=== PATIENT | female | born 1995 | race Caucasian/White ===

== ENCOUNTER 2020-02-14 08:45 | Outpatient (RCR) | payer BC, SELFPAY ==
--- NOTE | 2020-02-07 14:34 | P.PNPSP_ITS ---
Subjective Subjective Date of Service: 02/07/20 Reason For Visit: F33.2 Interim History: Steph reports she is sleeping better on Remeron, however, wants to discuss a return to low dose hydroxyzine for anxiety mgt as a prn. States Sertraline is tolerated, but feels an increase is warranted as well. Reports some vague SI last night, no plan, no intent, but when it was first initiated she felt a calm mind. Sx have increased since 01/29 and she is aware that medicine will not address all things but asks we consider modest titration. Medication Compliance: Yes Side effects from medications: No Attending Groups: Yes Mental Status Exam Mental Status Exam Patient Appearance: Appropriate Patient Orientation: Person, Place, Time and Situation Level of Consciousness: Awake and Appropriate Patient Behavior: Appropriate Mood Description: Calm Affect Description: Calm and Flat Patient Cognition Impaired: No Ability to Follow Directions: Excellent Memory Description: Intact Hallucinations: None Delusions: Not Present Thought Process: Intact Thought Content: positive for Intact Depressive Symptoms: Loss of Int. in Activity, Unhappiness, Low Self Esteem, Loss of Energy and Difficulty Concentrating Judgement: Good Assessment & Plan Certification I certify that partial hospital treatment is medically necessary due to the symptoms and problems resulting from the patient's mental illness and the failure to treat the patient at the partial hospital level of care would likely result in the patient requiring inpatient psychiatric care which could not be prevented at a less intensive level of care. Greater than 50% of the session was spent on counseling and/or coordination of care Discharge Plan Discharge Attending provider: Korey Burkett Additional Instructions: Increase Sertraline to 75 mg daily Hydroxyzine 25 mg daily prn (Benadral she reports is discontinued). Pharmacy is [place], [place] Medications: New sertraline 50 mg tablet 50 mg PO DAILY MDD 75 mg daily Qty: 14 RF: 0 Continued hydroxyzine pamoate 25 mg capsule 25 mg PO BID MDD 50 mg PRN (Reason: other-anxiety) Qty: 14 RF: 0 Discontinued sertraline 50 mg tablet 50 mg PO DAILY RF: 0 No Action oxybutynin chloride 5 mg tablet extended release 24hr 10 mg PO DAILY RF: 0 dextroamphetamine-amphetamine 5 mg capsule,extended release 24hr 5 mg PO DAILY RF: 0 bupropion HCl 300 mg tablet extended release 24 hr 300 mg PO DAILY RF: 0 bupropion HCl 150 mg tablet extended release 24 hr 150 mg PO DAILY RF: 0 cholecalciferol (vitamin D3) [Vitamin D3] 50 mcg (2,000 unit) capsule 50 mcg PO DAILY RF: 0 famotidine 20 mg tablet 20 mg PO DAILY PRN (Reason: Acid Reflux) RF: 0 melatonin 20 mg 20 mg PO BEDTIME RF: 0 [place] RF: 0 loratadine RF: 0 multivitamin 1 tab PO DAILY RF: 0 zinc RF: 0
--- NOTE | 2020-02-13 11:23 | HO.PHPPROGNO ---
Subjective Subjective Date of Service: 02/13/20 Reason For Visit: F33.2 Interim History: Steph reports she would like to discuss Sertraline. She does not feel it is a good fit for her and thinks it may be making symptoms more intense. Each time she is titrated she feels clear for a few days, calm and on track, then she develops anxiety and an increase in depressive sx. She also feels bladder urgency. Discussed this being a side effect vs. breakthrough sx. Also discussed Mirtazapine. She feels it helps sleep, however with her history of binge eating which has been in remission for ~1 year she finds she is beginning to experience this symptom again. As a result she finds these are not the best fit for her and asks to discuss options. Medication Compliance: Yes Side effects from medications: Yes (as noted above) Attending Groups: Yes Mental Status Exam Mental Status Exam Patient Orientation: Person, Place, Time and Situation Level of Consciousness: Awake, Appropriate and Alert Patient Behavior: Appropriate and Anxious Mood Description: Appropriate and Anxious Affect Description: Anxious Patient Cognition Impaired: No Ability to Follow Directions: Excellent Speech Pattern: Clear and Appropriate Memory Description: Intact Hallucinations: None Delusions: Not Present Thought Process: Intact Thought Content: positive for Intact Depressive Symptoms: Increased Anxiety, Changes in Appetite, Hopelessness, Unhappiness, Increased Fatigue, Loss of Energy and Difficulty Concentrating Judgement: Good Assessment & Plan Patient educated on: diagnosis, medication risk/benefits and therapeutic strategies Informed Consent: understands and further education needed Reason for contiued partial hosp. stay Substantial Risk for: harm to self, inability to function and rapid decompensation Certification I certify that partial hospital treatment is medically necessary due to the symptoms and problems resulting from the patient's mental illness and the failure to treat the patient at the partial hospital level of care would likely result in the patient requiring inpatient psychiatric care which could not be prevented at a less intensive level of care. Greater than 50% of the session was spent on counseling and/or coordination of care Discharge Plan Discharge Attending provider: Korey Burkett Additional Instructions: Sertraline taper... 50 mg daily for 3 days, 25 mg daily for three days, then discontinue Discontinue Mirtazapine Trazodone 50 mg hs Review on 02/18/20 for further interventions. Pharmacy is [place], [place] Medications: New sertraline 50 mg tablet 50 mg PO DAILY MDD 75 mg daily Qty: 14 RF: 0 trazodone 50 mg tablet 50 mg PO BEDTIME Qty: 14 RF: 0 Continued hydroxyzine pamoate 25 mg capsule 25 mg PO BID MDD 50 mg PRN (Reason: other-anxiety) Qty: 14 RF: 0 Discontinued sertraline 50 mg tablet 50 mg PO DAILY RF: 0 No Action oxybutynin chloride 5 mg tablet extended release 24hr 10 mg PO DAILY RF: 0 dextroamphetamine-amphetamine 5 mg capsule,extended release 24hr 5 mg PO DAILY RF: 0 bupropion HCl 300 mg tablet extended release 24 hr 300 mg PO DAILY RF: 0 bupropion HCl 150 mg tablet extended release 24 hr 150 mg PO DAILY RF: 0 cholecalciferol (vitamin D3) [Vitamin D3] 50 mcg (2,000 unit) capsule 50 mcg PO DAILY RF: 0 famotidine 20 mg tablet 20 mg PO DAILY PRN (Reason: Acid Reflux) RF: 0 melatonin 20 mg 20 mg PO BEDTIME RF: 0 [place] RF: 0 loratadine RF: 0 multivitamin 1 tab PO DAILY RF: 0 zinc RF: 0
--- NOTE | 2020-02-18 15:04 | PC.NURSE ---
I called and left a message for pt asking to go over discharge material. Another staff member (Tiffany) also called and left a message. Pt did not show today for treatment on her scheduled last day.
--- NOTE | 2020-02-18 16:48 | HO.PHPPROGNO ---
Subjective Subjective Date of Service: 02/18/20 Reason For Visit: F33.2 Interim History: Steph did not attend PHP today. She reports the Trazodone was not helpful over the weekend. Describes extreme anxiety, an increase in OCD behaviors, poor sleep with daytime tiredness and lability. She prefers the Mirtazapine and the overall sense of well-being it helps her to achieve and would like to re-initiate that at 3.75-7.5 mg hs. Reflects that mirtazapine did a better job quieting my mind with positive residual effects . Prescriber appt scheduled for 02/26/20. Offered bridge services for the 8 days pending. Pt to call as needed. Review of regime-discussed current symptoms. 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 Discussion of burn out and emotional energy needed in caring for others. Medication Compliance: Yes Side effects from medications: Yes (Trazodone was not helpful-anxiety,insomnia, ocd sx increase, tired, labile) Attending Groups: No (Pt did not attend her last day of PHP.) Review of Systems Review of Systems Yes all other systems are reviewed and are negative, unobtainable due to endotracheal tube, Unobtainable due to mental condition, Unobtainable due to mental status and Other Psychiatric: Reports anxiety, Reports depression, Reports irritability and Reports mood swings Mental Status Exam Mental Status Exam Patient Orientation: Person, Place, Time and Situation Level of Consciousness: Awake and Alert Patient Behavior: Appropriate Mood Description: Anxious Affect Description: Anxious Patient Cognition Impaired: No Ability to Follow Directions: Excellent Speech Pattern: Clear and Appropriate Memory Description: Intact Hallucinations: None Thought Process: Intact and Goal Oriented Thought Content: positive for Intact and positive for Goal Oriented Depressive Symptoms: Increased Anxiety, Insomnia and Difficulty Sleeping Judgement: Good Assessment & Plan Patient educated on: medication risk/benefits and therapeutic strategies Informed Consent: understands and further education needed Reason for contiued partial hosp. stay Substantial Risk for: inability to function Certification I certify that partial hospital treatment is medically necessary due to the symptoms and problems resulting from the patient's mental illness and the failure to treat the patient at the partial hospital level of care would likely result in the patient requiring inpatient psychiatric care which could not be prevented at a less intensive level of care. Greater than 50% of the session was spent on counseling and/or coordination of care Discharge Plan Discharge Attending provider: Korey Burkett Additional Instructions: Sertraline taper... 50 mg daily for 3 days, 25 mg daily for three days, then discontinue. Will begin 25 mg daily on 02/19/20. Discontinue Trazodone Return to Mirtazapine 7.5 mg 1/2-1 tab at HS. Pt requests we send a prescription to [place], [place] Medications: New mirtazapine 7.5 mg tablet 7.5 mg PO BEDTIME Qty: 10 RF: 0 Continued hydroxyzine pamoate 25 mg capsule 25 mg PO BID MDD 50 mg PRN (Reason: other-anxiety) Qty: 14 RF: 0 Discontinued sertraline 50 mg tablet 50 mg PO DAILY RF: 0 No Action oxybutynin chloride 5 mg tablet extended release 24hr 10 mg PO DAILY RF: 0 dextroamphetamine-amphetamine 5 mg capsule,extended release 24hr 5 mg PO DAILY RF: 0 bupropion HCl 300 mg tablet extended release 24 hr 300 mg PO DAILY RF: 0 bupropion HCl 150 mg tablet extended release 24 hr 150 mg PO DAILY RF: 0 cholecalciferol (vitamin D3) [Vitamin D3] 50 mcg (2,000 unit) capsule 50 mcg PO DAILY RF: 0 famotidine 20 mg tablet 20 mg PO DAILY PRN (Reason: Acid Reflux) RF: 0 melatonin 20 mg 20 mg PO BEDTIME RF: 0 [place] RF: 0 loratadine RF: 0 multivitamin 1 tab PO DAILY RF: 0 zinc RF: 0 sertraline 25 mg 25 mg PO DAILY RF: 0 Referrals: Duran Weiss MD [Physician] - (02/26/2020 at 2:15 pm)
== END 2020-02-18 23:55 | disposition home or self-care (01) ==
LOC: HO.PHPA 08:45
PROVIDERS: Visit Provider Psychiatry & Neurology Psychiatry
DX: F33.2 Major depressive disorder, recurrent severe without psychotic features (principal); F90.9 Attention-deficit hyperactivity disorder, unspecified type
CPT/HCPCS: 90853; 99213

== ENCOUNTER 2020-05-07 09:00 | Outpatient (RCR) | payer BC, SELFPAY ==
[2020-04-24 12:33] VITALS: BMI 25.8
--- NOTE | 2020-04-24 12:50 | PC.ADMIT ---
Patient is a 24 year old female who self referred to [facility] on advice of her outpatient [facility] providers d/t an increase in depression with passive SI and increase in anxiety. Patient reports family issues as a source of stress. Stated she is here to, continue to work on impulsivity, anger control, and anxiety relief . She stated, depression worthy I dipped . Denied SI at present. Gave verbal permission to email her a copy of her safety plan. Patient has the crisis number if needed. Patient is also aware that she can talk to staff while in the program if she feels unsafe. She is alert and oriented x4. Calm and cooperative. Help seeking.
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
--- NOTE | 2020-04-28 09:22 | PC.NURSE ---
Tw called and left message for pt as she did not attend morning community meeting. Pt was asked to return the call to ensure safety as well as return to program tomorrow 04/29. Pt returned the call stating that she slept through her alarm. Pt was informed that she will be expected tomorrow for program. Pt agreed.
--- NOTE | 2020-04-29 14:56 | HO.PHPPROGNO ---
Subjective Subjective Date of Service: 04/29/20 Reason For Visit: depression Interim History: Patient she reports she has been dealing with some type of flu like illness. Reporting her sleep has improved as she is now taking gabapentin 100mg QHS, Xanax 0.25mg (2 tabs), and melatonin. Her outpatient provider started the xanax earlier this month and she is finding it helpful. Reporting some anxiety related to upcoming Holiday's and how interactions with family will go. Medication Compliance: Yes Side effects from medications: No Attending Groups: Yes Review of Systems Constitutional: Reports as per [facility] Mental Status Exam Mental Status Exam Patient Appearance: Well Grooomed Level of Consciousness: Awake, Appropriate and Alert Patient Behavior: Appropriate Mood Description: Happy and Appropriate Affect Description: Happy and Anxious Ability to Follow Directions: Excellent Speech Pattern: Clear Hallucinations: None Delusions: Not Present Thought Content: positive for Circumstantial Depressive Symptoms: Increased Anxiety, Feelings of Guilt and Unhappiness Judgement: Good Diagnostics Vital Signs (24Hr): Body Mass Index 25.8 Assessment & Plan Assessment & Plan (1) Major depression, recurrent: Status: Acute Code(s): F33.9 - Major depressive disorder, recurrent, unspecified Assessment and Plan: no changes followup PRN Certification I certify that partial hospital treatment is medically necessary due to the symptoms and problems resulting from the patient's mental illness and the failure to treat the patient at the partial hospital level of care would likely result in the patient requiring inpatient psychiatric care which could not be prevented at a less intensive level of care. Greater than 50% of the session was spent on counseling and/or coordination of care Discharge Plan Discharge Attending provider: Korey Burkett Medications: No Action alprazolam [Xanax] 0.25 mg Tablet 0.25 mg PO DAILY RF: 0 sertraline 25 mg Tablet 37.5 mg PO DAILY RF: 0 hydroxyzine HCl 25 mg Tablet 25 mg PO DAILY PRN (Reason: Anxiety) RF: 0 gabapentin 100 mg Tablet 100 mg PO BEDTIME RF: 0 oxybutynin chloride 5 mg tablet extended release 24hr 10 mg PO BEDTIME RF: 0 bupropion HCl 300 mg tablet extended release 24 hr 300 mg PO DAILY RF: 0 bupropion HCl 150 mg tablet extended release 24 hr 150 mg PO DAILY RF: 0 cholecalciferol (vitamin D3) [Vitamin D3] 50 mcg (2,000 unit) capsule 50 mcg PO DAILY RF: 0 Telehealth Telehealth Location of provider rendering services: practice address Location of patient: address on file Patient Identification confirmed using: Name, : Yes Telehealth method: video Patient verbally consented to treatment: Yes Patient verbally consented to billing insurance company: Yes Time spent with patient (mins): 15
--- NOTE | 2020-05-04 16:38 | HO.PHPPROGNO ---
Subjective Subjective Date of Service: 05/04/20 Reason For Visit: depression Interim History: Patient reporting she feels her sertraline may be causing issues for her. She has been craving meat (she is vegan) and noted that she is bloated and feels that the sertraline may be the reason. Provided supportive listening then encouraged patient to log when she notices these fluctuations to better track if these become chronic or if they align with her menstrual cycle. Voiced hesitation to make additional changes to regimen based on reported patient concerns--patient agreeable. Medication Compliance: Yes Side effects from medications: Yes (as reported by patient in HPI) Attending Groups: Yes Review of Systems Constitutional: Reports as per HPI Mental Status Exam Mental Status Exam Patient Appearance: Well Grooomed and Appropriate Level of Consciousness: Awake, Appropriate and Alert Patient Behavior: Appropriate and Talkative Mood Description: Cheerful and Anxious Affect Description: Cheerful Ability to Follow Directions: Excellent Speech Pattern: Clear and Appropriate Hallucinations: None Thought Process: Rumination Thought Content: positive for Circumstantial Depressive Symptoms: Increased Anxiety Judgement: Fair Diagnostics Vital Signs (24Hr): Body Mass Index 25.8 Assessment & Plan Assessment & Plan (1) Major depression, recurrent: Status: Acute Code(s): F33.9 - Major depressive disorder, recurrent, unspecified Assessment and Plan: no changes to regimen at this time Certification I certify that partial hospital treatment is medically necessary due to the symptoms and problems resulting from the patient's mental illness and the failure to treat the patient at the partial hospital level of care would likely result in the patient requiring inpatient psychiatric care which could not be prevented at a less intensive level of care. Greater than 50% of the session was spent on counseling and/or coordination of care Discharge Plan Discharge Attending provider: Korey Burkett Medications: New alprazolam [Xanax] 0.25 mg tablet 0.25 mg PO BEDTIME PRN (Reason: sleep) Qty: 7 RF: 0 gabapentin 100 mg capsule 100 mg PO BEDTIME Qty: 7 RF: 0 alprazolam 0.25 mg tablet 0.25 mg PO BEDTIME PRN (Reason: sleep) Qty: 6 RF: 0 Discontinued alprazolam [Xanax] 0.25 mg Tablet 0.25 mg PO DAILY RF: 0 No Action sertraline 25 mg Tablet 37.5 mg PO DAILY RF: 0 hydroxyzine HCl 25 mg Tablet 25 mg PO DAILY PRN (Reason: Anxiety) RF: 0 gabapentin 100 mg Tablet 100 mg PO BEDTIME RF: 0 oxybutynin chloride 5 mg tablet extended release 24hr 10 mg PO BEDTIME RF: 0 bupropion HCl 300 mg tablet extended release 24 hr 300 mg PO DAILY RF: 0 bupropion HCl 150 mg tablet extended release 24 hr 150 mg PO DAILY RF: 0 cholecalciferol (vitamin D3) [Vitamin D3] 50 mcg (2,000 unit) capsule 50 mcg PO DAILY RF: 0 Telehealth Telehealth Location of provider rendering services: practice address Location of patient: address on file Patient Identification confirmed using: Name, : Yes Telehealth method: video Patient verbally consented to treatment: Yes Patient verbally consented to billing insurance company: Yes Time spent with patient (mins): 17
--- NOTE | 2020-05-12 08:02 | PC.NURSE ---
note entered late....05/07/2020- LM for Arian Quintana, Pt's therapist, informing him of discharge and status.
== END 2020-05-07 23:55 | disposition home or self-care (01) ==
LOC: HO.PHPA 09:00
PROVIDERS: Visit Provider Psychiatry & Neurology Psychiatry
DX: F33.2 Major depressive disorder, recurrent severe without psychotic features (principal); F90.9 Attention-deficit hyperactivity disorder, unspecified type
CPT/HCPCS: 90791; 90853; 99213

== ENCOUNTER 2020-11-19 11:52 | Outpatient (RCR) | payer OTHER, SELFPAY ==
--- NOTE | 2020-11-20 15:23 | PC.NURSE ---
Patient was a no show for her first day of PHP. Pt reported that she did not sleep and could not start. Pt will be contacted for reassessment.
== END 2020-11-23 07:22 | disposition home or self-care (01) ==
LOC: HO.PHPA 11:52
PROVIDERS: Visit Provider Psychiatry & Neurology Psychiatry
DX: F33.2 Major depressive disorder, recurrent severe without psychotic features (principal); F41.9 Anxiety disorder, unspecified; F42.9 Obsessive-compulsive disorder, unspecified
CPT/HCPCS: 90791

== ENCOUNTER → 2024-01-01 12:15 | Outpatient (BNV) | payer OTHER, SELFPAY | PROVIDERS: Visit Provider Psychiatry & Neurology Psychiatry | DX: F33.9 Major depressive disorder, recurrent, unspecified (principal); F42.8 Other obsessive-compulsive disorder | CPT/HCPCS: 90792; 99213; 99214; 99499 ==

== ENCOUNTER 2024-01-03 08:24 | Outpatient (REF) | payer OTHER, SELFPAY ==
[2024-01-03 09:04] LABS: MANUAL DIFF FLAG NO
[2024-01-03 10:41] LABS: Basophils Percent Auto 0.3 % (0-2); Eosinophils Absolute Auto 0.1 X10*3/uL (0.0-0.4); Eosinophils Percent Auto 1.9 % (0-4); Hematocrit 34.8 % (37.0-47.0); Hemoglobin 11.5 g/dl (12.0-16.0); Imm Gran Abs Auto 0.02 X10*3/uL (0.00-0.03); Imm Gran Pct Auto 0.3 % (0.0-0.4); Lymphocytes Absolute Auto 1.6 X10*3/uL (1.2-4.9); Lymphocytes Percent Auto 24.5 % (20-40); Mean Corpuscular Hemoglobin 31.7 pg (27.0-33.0); Mean Corpuscular Volume 95.9 fL (80.0-98.0); Mean Platelet Volume 10.1 fL (9.4-12.3); Monocytes Absolute Auto 0.5 X10*3/uL (0.1-1.2); Monocytes Percent Auto 7.2 % (2-11); Neutrophils Absolute Auto 4.2 x10*3/uL (2.0-8.3); Neutrophils Percent Auto 65.8 % (45-73); Platelet Count 284 X10*3/uL (160-400); Red Blood Count 3.63 X10*6/uL (4.20-5.50); Red Cell Distribution Width 12.9 % (11.0-16.0); White Blood Count 6.4 X10*3/uL (4.8-10.8)
[2024-01-03 10:45] LABS: Prothrombin Time 11.9 SEC (11.1-13.3)
[2024-01-03 10:56] LABS: Appearance Urine Cloudy; Color Urine Yellow; Glucose Urine UA Negative (Negative); Leukocyte Esterase Urine Moderate (2+) (Negative); Nitrite Urine Negative (Negative); Specific Gravity - Urine 1.025 (1.005-1.025); UMIC TRIGGER UA YES; Urine Blood Small (1+) (Negative); Urine Ketones Trace mg/dL (Negative); Urine Protein 30 (1+) mg/dL (Neg-Trace)
[2024-01-03 11:00] LABS: UPreg QC Valid YES; Urine Pregnancy NEGATIVE (NEGATIVE)
[2024-01-03 11:10] LABS: Estimated Average Glucose 85 mg/dL; Hemoglobin A1c % 4.6 % (<6.0)
[2024-01-03 11:15] LABS: Acetaminophen LAB < 3 mcg/mL (<30)
[2024-01-03 11:16] LABS: Bacteria Urine 1+ (None Seen); Hyaline Casts Urine 0-2 /LPF (0-2); WBC Urine 21-50 /HPF (0-5)
[2024-01-03 11:42] LABS: Alanine Aminotransferase 12 U/L (0-31); Albumin Level 4.5 g/dL (3.5-5.0); Alkaline Phosphatase 48 U/L (39-117); Anion Gap 13 (12-20); Aspartate Amino Transferase 14 U/L (5-31); Bilirubin Total 0.3 mg/dL (0.0-1.0); Blood Urea Nitrogen 10 mg/dL (9-16); Calcium 9.9 mg/dL (8.4-10.2); Carbon Dioxide 27 mmol/L (22-29); Chloride 108 mmol/L (96-108); Cholesterol 152 mg/dL (<200); Estimated Glomerular Filt Rate > 60; Gamma Glutamyl Transpeptidase 20 U/L (7-33); Glucose Fasting 87 mg/dL (60-99); HDL Cholesterol 49 mg/dL (>40); Iron 49 mcg/dL (30-160); LDL Cholesterol Calculated 83 mg/dL (<100); Lactate Dehydrogenase 163 U/L (122-220); Lipase 19 U/L (8-78); Percent Iron Saturation 22 % (15-50); Potassium 3.5 mmol/L (3.3-5.1); Sodium 144 mmol/L (135-145); Total Iron Binding Capacity 220 mcg/dL (228-428); Triglycerides 102 mg/dL (<150); Unsaturated Iron Binding 171 ug/dL
[2024-01-03 11:46] LABS: Folate 5.3 ng/mL (> or = 4.0); Vitamin B12 771 pg/mL (200-900)
[2024-01-03 12:00] LABS: Ferritin 62 ng/mL (10-122); Free T4 (Free Thyroxine) 0.82 ng/dL (0.71-1.85); Thyroid Stimulating Hormone 0.66 uIU/mL (0.32-4.0)
[2024-01-11 17:43] LABS: Vitamin K1 719 pg/mL (130-1500)
== END 2024-01-03 08:25 | disposition home or self-care (01) ==
LOC: HO.LAB 08:24
PROVIDERS: PCP Internal Medicine; Visit Provider Psychiatry & Neurology Psychiatry
DX: F33.2 Major depressive disorder, recurrent severe without psychotic features (principal); F41.1 Generalized anxiety disorder; F42.9 Obsessive-compulsive disorder, unspecified
CPT/HCPCS: 36415; 80053; 80061; 80143; 81001; 81025; 82306; 82607; 82728; 82746; 82977; 83036; 83540; 83615; 83690; 84439; 84443; 84597; 85025; 85610; 87086; 87147

== ENCOUNTER 2024-01-16 12:15 | Outpatient (RCR) | payer OTHER, SELFPAY ==
[2024-01-01 11:46] VITALS: BP 111/84; PULSE 92; TEMP 37.1
[2024-01-01 11:49] VITALS: BMI 23.3
--- NOTE | 2024-01-01 15:03 | PC.ADMIT ---
Patient is a 28 year old female who self referred to PHP d/t increased sxs of depression, anxiety, and OCD. She reports triggers include her father who is not doing well health worthy as he needs another heart replacement surgery and has been declined. She is also struggling in her relationship with her boyfriend of 8 months. Patient lives with parents and partner. Spends 1/2 time with each. 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 Training currently however is looking for a different job something other than remote as she does not like working remote. Patient is alert and oriented x4. Calm and cooperative. Thoughts are clear and logical. She presented with depressed mood and anxious affect. She stated her OCD sxs have increased and she gets fixated on something it is hard for her to let it go as a result. She denied SI. She was given a copy of her safety plan if needed. Medications reconciled with patient and patient's pharmacy. She reports taking medications as prescribed with the exception of Wellbutrin 150 mg tab as she does not take this all the time as she feels it is too much taking it with the [address] Oviedo is aware. Patient also not taking OTC Tylenol as prescribed. See below.
--- NOTE | 2024-01-01 15:04 | PC.NURSE ---
Patient has a new PCP appointment with Dr Auguste on February 08, 2024 at 2pm. [address] [place] [address]. Office number [phone].
--- NOTE | 2024-01-01 22:16 | P.HPPSP_ITS ---
HPI Date of Service: 01/01/24 Chief Complaint: MDD Sources of Information: patient interviewed, chart reviewed and crisis/core team assessment reviewed HPI Narrative: Patient is a single 28 year old female with history of depression, anxiety, OCD, binge eating who was self referred to [facility]. I've been in decline for over a month now due to family and relationship stressors. She reports that she was last doing well in November, and that her mood and mental health was relatively well-controlled. She reports her father has been experiencing medical complications and congestive heart failure. He received a heart transplant years ago, but it is showing signs of failing. The hospital said they wont be giving him a new one . She also has been dealing with a lot of emotionally- provoking problems with her partner, she says they have a very healthy relationship, but that they are in a rough patch in recent months which has been destabilizing. She enjoys her job but says she has needed to take time off due to decline in functioning. She reports OCD sx are partially treated. She was started on fluvoxamine 7 months ago and was initially helpful, but has been experiencing flare-ups more recently. Current medication regime includes Wellbutrin XL 450 mg (which she has been on since 2018), fluvoxamine 100 mg/d added in 04/2023 and gabapentin 100 mg qhs. She reports having difficulty sleeping, shares that she has been especially frustrated with her provider who insists that she remain on Wellbutrin XL 450 mg which he reportedly says that's my base however patient is not certain what it is helping with. The dose has persisted for years, and in fact she has had sleep issues for years which she reportedly manages with OTC Tylenol PM. She reports taking 8 tablets every night. She denies anyone has suggested she discontinue this or voiced concerns about exceeding the daily max AC dose. She is also noted to have lost in excess of 60 lbs in the past Past Psychiatric History: IP x 1 in 01/2020 to [facility] for depression, SI Previous virtual [facility] admissions Denies detox/rehab admissions Denies hx of suicidal thoughts w plan which lead to hospitalization, no SA or SIBs Denies hx of aggressive behaviors (per initial assessment, reports of aggressive interactions with father, BF) Hx disorganzied eating behaviors, namely binge eating, currently being managed Therapist: Bonilla Kwan Psych provider: Duran Weiss Previous trials: Zoloft (AE:got worse, possibly manic), Buspar (ineffective), trazodone, Xanax, melatonin, Benadryl, hydroxyzine CURRENT MEDICATIONS Wellbutrin XL 450 mg qam fluvoxamine 50 mg BID gabapentin 100 mg qhs hydroxyzine 50 mg qd prn semaglutide 0.25 mg subcut qweekly otc Tylenol PM, reports taking ~8 tablets (3500 mg?) every night x yrs [facility] Medical History (Updated 01/02/24 @ 13:43 by Nely Oviedo MD) Allergic conjunctivitis, bilateral Anxiety Narrative: Weight loss - 45 lbs intentional (on semaglutide) additional 10 lbs past month unintentional Reports regularly taking high doses of Tylenol PM that supercede max dose Family History: Mother - depression, anxiety, OCD Father - depression, anxiety, ADHD, anger issues Social History: Unmarried, no children. In current relationship Currently employed Graduated from [employer] majoring in theater Substance History: Cannabis use - occasional edibles, smoking, vaping THC. Last use was 09/2023 Alcohol use - socially, in moderation, limited to weekend. Remote history of heavier use in college. some black-outs, denies any binges or concerning behaviors Sporadic recreational drug use for <12 months from 2020- (cocaine, LSD, poppers) denies any heavy use or accidental overdoses Trauma History: endorses Diagnostics Vital Signs (24Hr): Vital Signs - 24 hr 01/01/24 11:46 Temperature 98.8 F Pulse Rate 92 Blood Pressure 111/84 BMI result Body Mass Index 23.3 Meds/Allergies Meds Home Medications ?Medication ?Instructions ?Recorded ?Confirmed ?Type bupropion HCl 150 mg 24 hr tablet, 150 mg PO DAILY 02/07/20 01/01/24 History extended release bupropion HCl 300 mg 24 hr tablet, 300 mg PO DAILY 02/07/20 01/01/24 History extended release hydroxyzine HCl 25 mg tablet 25 mg PO BID PRN Anxiety 04/24/20 01/01/24 History fluvoxamine 50 mg tablet 50 mg PO BID 01/01/24 01/01/24 History gabapentin 100 mg capsule 100 mg PO DAILY 01/01/24 01/01/24 History semaglutide (weight loss) 0.25 0.25 mg subcut QWEEK 01/01/24 01/01/24 History mg/0.5 mL subcutaneous pen injector Allergies Allergies Allergy/AdvReac Type Severity Reaction Status Date / Time coconut [COCONUT] Allergy Unknown Shortness Verified 04/24/20 12:29 of Breath soy [SOY] Allergy Unknown Shortness Verified 04/24/20 12:29 of Breath Mental Status Exam Mental Status Exam Narrative: Alert, oriented, in no acute distress. Calm, cooperative, engaged. No psychomotor agitation or neurovegetative retardation. Eye contact maintained. Mood anxious, affect variable, mood congruent. Speech normal. Thought process linear, coherent. Thought content related to stressors, denies any hopelessness or SI. Denies any aggressive ideation or HI. No paranoia or delusional content elicited. No evidence of psychosis. Insight and judgment - fair but adequate. Assessment & Plan Assessment & Plan (1) Major depression, recurrent: Status: Acute Code(s): F33.9 - Major depressive disorder, recurrent, unspecified (2) ADHD: Status: Acute Code(s): F90.9 - Attention-deficit hyperactivity disorder, unspecified type (3) Other obsessive-compulsive disorder: Status: Acute Code(s): F42.8 - Other obsessive-compulsive disorder (4) Other mixed anxiety disorders: Status: Acute Code(s): F41.3 - Other mixed anxiety disorders (5) Cannabis use disorder, mild, abuse: Status: Acute Code(s): F12.10 - Cannabis abuse, uncomplicated Plan Admit to [facility] VS reviewed: abrefile, BP ? bpm decrease Wellbutrin XL to 300 mg qam start Abilify 2 mg qhs (start 1/2 tablet for 1-2 nights, then whole tablet) increase gabapentin to 300 mg qhs take melatonin 5 mg qhs start diphenhydramine 25 mg qhs PRN sleep may take lorazepam 0.5 mg at night PRN breakthrough insomnia while adjusting medications #10 continue fluvoxamine 50 mg BID continue other regular medications?- semaglutide 0.25 mg subcut weekly Routine lab work ordered - routine labs including LFTs EKG, routine for baseline QTc for medication considerations UDS as indicated [facility]Pat reviewed Continue to monitor as per protocol Patient educated on: diagnosis, medication risk/benefits and substance abuse Informed Consent: understands Certification I certify that partial hospital treatment is medically necessary due to the symptoms and problems resulting from the patient's mental illness and the failure to treat the patient at the partial hospital level of care would likely result in the patient requiring inpatient psychiatric care which could not be prevented at a less intensive level of care. Time Spent With Patient Time: Total time managing care of this patient today ____ minutes.
--- NOTE | 2024-01-03 11:33 | P.PNPSP_ITS ---
Subjective Subjective Date of Service: 01/03/24 Reason For Visit: MDD Interim History: As per admission note 01/01/24: 28 year old female with history of depression, anxiety, OCD, binge eating who was self referred to [facility]. I've been in decline for over a month now due to family and relationship stressors. She reports that she was last doing well in November, and that her mood and mental health was relatively well-controlled. She reports her father has been experiencing medical complications and congestive heart failure. He received a heart transplant years ago, but it is showing signs of failing. The hospital said they wont be giving him a new one . She also has been dealing with a lot of emotionally-provoking problems with her partner, she says they have a very healthy relationship, but that they are in a rough patch in recent months which has been destabilizing. She enjoys her job but says she has needed to take time off due to decline in functioning. She reports OCD sx are partially treated. She was started on fluvoxamine 7 months ago and was initially helpful, but has been experiencing flare-ups more recently. Current medication regime includes Wellbutrin XL 450 mg (which she has been on since 2017), fluvoxamine 100 mg/d added in 04/2023 and gabapentin 100 mg qhs. She reports having difficulty sleeping, shares that she has been especially frustrated with her provider who insists that she remain on Wellbutrin XL 450 mg which he reportedly says that's my base however patient is not certain what it is helping with. The dose has persisted for years, and in fact she has had sleep issues for years which she reportedly manages with OTC Tylenol PM. She reports taking 8 tablets every night. She denies anyone has suggested she discontinue this or voiced concerns about exceeding the daily max AC dose. She is also noted to have lost in excess of 60 lbs in the past decrease Wellbutrin XL to 300 mg qam start Abilify 2 mg qhs (start 1/2 tablet for 1-2 nights, then whole tablet) increase gabapentin to 300 mg qhs take melatonin 5 mg qhs start diphenhydramine 25 mg qhs PRN sleep may take lorazepam 0.5 mg at night PRN breakthrough insomnia while adjusting medications #10 continue fluvoxamine 50 mg BID continue other regular medications?- semaglutide 0.25 mg subcut weekly Met with patient today. Overall patient wanted to discuss sleep, allergies and overall med regimen for OCD. Clarified that sleep was a little bit better with gabapentin 300 mg, Ativan 0.5 mg. however was still awake and took Benadryl 25 mg with some benefit. Has also lowered Wellbutrin down to 300 mg as discussed. Tolerating Abilify with 1 dose yesterday. We discussed for sleep can take Benadryl 50 mg along with nighttime medications and if needed an additional 25 mg should she not be sleeping within 60 minutes . Did have some obsessive thoughts such as if soy allergy was not taken off her record, that her partner would break up with her. Again this is clearly obsessive in nature i.e. insight, rational, intrusive etc. . Patient was very clear she is not allergic to so a and she makes this up while she was going through dietary changes. Was very clear she is allergic to coconut. Regarding OCD, did discuss that Abilify can be an effective augmentation agent and also Luvox dose adjustments may also be helpful . Otherwise will be meeting with Dr. Raza tomorrow. Mental Status Exam Mental Status Exam Narrative: Pleasant. Engaged. Casual dress resented. Organized. Some anxiety evident. No SI. No HI. No agitation. No psychosis. Insight and judgment good Diagnostics Vital Signs (24Hr): BMI result Body Mass Index 23.3 Assessment & Plan Assessment & Plan (1) Major depression, recurrent: Status: Acute Code(s): F33.9 - Major depressive disorder, recurrent, unspecified Assessment and Plan: no changes to regimen at this time (2) Other obsessive-compulsive disorder: Status: Acute Code(s): F42.8 - Other obsessive-compulsive disorder Plan We discussed for sleep can take Benadryl 50 mg along with nighttime medications and if needed an additional 25 mg should she not be sleeping within 60 minutes . Regarding OCD, did discuss that Abilify can be an effective augmentation agent and also Luvox dose adjustments may also be helpful . Otherwise will be meeting with Dr. Raza tomorrow. Patient educated on: diagnosis and medication risk/benefits Informed Consent: understands Certification I certify that partial hospital treatment is medically necessary due to the symptoms and problems resulting from the patient's mental illness and the failure to treat the patient at the partial hospital level of care would likely result in the patient requiring inpatient psychiatric care which could not be prevented at a less intensive level of care. Total time managing care of this patient today _30___ minutes. Discharge Plan Discharge Attending provider: Nely Oviedo Additional Instructions: New PCP appointment with Dr Auguste on February 08, 2024 at [address] [place] [address]. Office number [phone]. Medications: New aripiprazole 2 mg tablet 2 mg PO BEDTIME Qty: 14 0RF gabapentin 300 mg capsule 300 mg PO BEDTIME Qty: 14 0RF diphenhydramine HCl 25 mg capsule 25 mg PO BEDTIME PRN (Reason: sleep) Qty: 20 0RF lorazepam 0.5 mg tablet 0.5 mg PO BEDTIME PRN (Reason: breakthrough insomnia) Qty: 10 0RF Continued fluvoxamine 50 mg Tablet 50 mg PO BID No Action hydroxyzine HCl 25 mg Tablet 25 mg PO BID PRN (Reason: Anxiety) bupropion HCl 300 mg tablet extended release 24 hr 300 mg PO DAILY bupropion HCl 150 mg tablet extended release 24 hr 150 mg PO DAILY gabapentin 100 mg capsule 100 mg PO DAILY semaglutide (weight loss) 0.25 mg/0.5 mL Pen Injector 0.25 mg SUBCUT QWEEK Rx Instructions: administer weeks 1 through 4 of therapy Stand Alone Forms: Patient Portal Discharge page Print Language: Brazilian Telehealth Telehealth Telehealth Platform: Other (please specify) ([employer]) Location of provider rendering services: practice address ([place]) Location of patient: other ([facility]) Patient Identification confirmed using: Name, : Yes Telehealth method: video Minutes spent on Phone/Video with Pt.: 15
--- NOTE | 2024-01-04 15:31 | HO.PHP ---
Pt's case has been opened and reviewed in treatment team.
--- NOTE | 2024-01-05 22:44 | HO.PHPPROGNO ---
Subjective Subjective Date of Service: 01/05/24 Reason For Visit: MDD Interim History: Not super great She noticed initially with lowering her dose of Wellbutrin XL from 450 to 300 mg that she was able to sleep better, matt her mind was quieter for the next 2 days. OCD is not constant anymore but it is particularly noticable in the afternoon. She has been taking the ABilfy but only at 1/2 tablet (and did not remember to increase the dose). She will do so tonight and will plan to titrate onwards to 3.5 mg and possibly 5 mg if needed next week, but for now will also plan to bump up fluvoxamine from 50 bid to 75 BID especially since patient denies any sedation or side effects from the fluvoxamine which has also been felt to help with OCD thoughts. Mental Status Exam Mental Status Exam Narrative: Pleasant. Engaged. Casual dress resented. Organized. Some anxiety evident. No SI. No HI. No agitation. No psychosis. Insight and judgment good Diagnostics Vital Signs (24Hr): BMI result Body Mass Index 23.3 Assessment & Plan Assessment & Plan (1) Major depression, recurrent: Status: Acute Code(s): F33.9 - Major depressive disorder, recurrent, unspecified Assessment and Plan: no changes to regimen at this time (2) Other obsessive-compulsive disorder: Status: Acute Code(s): F42.8 - Other obsessive-compulsive disorder Plan continue Wellbutrin XL at 300 mg qam (for now) - will plan to lower to 150 mg as tolerated next week, once Luvox and ABilify are more therapeutic, and perhaps will switch off WB and onto low dose long-acting stimulant for trtmt of ADHD, which patient is better able to control, taking on a PRN basis, and avoid taking during times OCD is more active) increase Abilify to 3.5 mg qhs increase fluvoxamine to 75 mg BID continue gabapentin 300-600 mg qhs continue melatonin, diphenhydramine 25 mg qhs PRN sleep may take lorazepam 0.5 mg at night PRN breakthrough insomnia while adjusting medications #10 continue other regular medications?- semaglutide 0.25 mg subcut , weekly Routine lab work reviewed - LFTs wnl (patient no longer taking Tylenol PM) findings for iron deficiency anemia, low folate - Rx supplement for Fe, folate and vit c EKG, routine and UDS as indicated Continue to monitor Patient educated on: diagnosis, medication risk/benefits and substance abuse Informed Consent: understands Reason for contiued partial hosp. stay Substantial Risk for: rapid decompensation and med/psych decompensation Certification I certify that partial hospital treatment is medically necessary due to the symptoms and problems resulting from the patient's mental illness and the failure to treat the patient at the partial hospital level of care would likely result in the patient requiring inpatient psychiatric care which could not be prevented at a less intensive level of care. Total time managing care of this patient today _30___ minutes. Discharge Plan Discharge Attending provider: Nely Oviedo Additional Instructions: New PCP appointment with Dr Auguste on February 08, 2024 at [address] [place] [address]. Office number [phone]. Medications: New aripiprazole 2 mg tablet 2 mg PO BEDTIME Qty: 14 0RF gabapentin 300 mg capsule 300 mg PO BEDTIME Qty: 14 0RF diphenhydramine HCl 25 mg capsule 25 mg PO BEDTIME PRN (Reason: sleep) Qty: 20 0RF lorazepam 0.5 mg tablet 0.5 mg PO BEDTIME PRN (Reason: breakthrough insomnia) Qty: 10 0RF guanfacine 1 mg tablet extended release 24 hr 1 mg PO DAILY Qty: 30 0RF bupropion HCl [Wellbutrin XL] 150 mg tablet extended release 24 hr 150 mg PO QAM Qty: 30 0RF iron bis glycinat-vit C-FA-B12 28 mg iron-60mg -400 mcg-8 mcg capsule 1 cap PO DAILY 30 Days Qty: 30 1RF Continued fluvoxamine 50 mg Tablet 50 mg PO BID Discontinued hydroxyzine HCl 25 mg Tablet 25 mg PO BID PRN (Reason: Anxiety) bupropion HCl 150 mg tablet extended release 24 hr 150 mg PO DAILY gabapentin 100 mg capsule 100 mg PO DAILY No Action bupropion HCl 300 mg tablet extended release 24 hr 300 mg PO DAILY semaglutide (weight loss) 0.25 mg/0.5 mL Pen Injector 0.25 mg SUBCUT QWEEK Rx Instructions: administer weeks 1 through 4 of therapy Stand Alone Forms: Patient Portal Discharge page Print Language: Frisian
--- NOTE | 2024-01-10 09:51 | HO.PHP ---
[facility] staff member reached out to Steph because she did not show up for the community meeting group. Steph disclosed that she won't be in attendance to program today due to not sleeping well last night. [facility] staff member was receptive and assessed any safety concerns. Steph reported no concerns around SI, plan or intent and stated she is safe. Steph voiced that she will be in attendance to program tomorrow.
--- NOTE | 2024-01-11 13:08 | HO.PHP ---
A referral was placed via fax today 01/11/24 to [facility] for an OP med provider.
--- NOTE | 2024-01-12 12:23 | HO.PHPPROGNO ---
Subjective Subjective Date of Service: 01/12/24 Reason For Visit: MDD, OCD Interim History: OCD at a 10/15, says it was a 04/16 when she started PHP. She says it was considerably better since starting Abilify and even noticed a further reduction in obsessive, intrusive thoughts on 3.5 mg but says she is worried about potentially gaining weight so she went back to 2 mg which still helps, although not as much . Denies any hopelessness or SI. Sleep is better with gabapentin at 600 mg, takes a little while to kick in . Tried 900 mg together which was better although there is delay onset. She is trying to take the Wellbutrin XL earlier, lowering the dose helped with anxiety, but feels a little more lost in her head . Is willing to try switching from entended 24 hr release to the short acting SR 12 hour release. May interfere less with sleep and be more effective for focus/attention. Medication Compliance: Yes Side effects from medications: No Attending Groups: Yes Review of Systems Acute medical concerns: No Mental Status Exam Mental Status Exam Narrative: Pleasant. Engaged. Casual dress resented. Organized. Some anxiety evident. No SI. No HI. No agitation. No psychosis. Insight and judgment good Diagnostics Vital Signs (24Hr): BMI result Body Mass Index 23.3 Assessment & Plan Assessment & Plan (1) Major depression, recurrent: Status: Acute Code(s): F33.9 - Major depressive disorder, recurrent, unspecified Assessment and Plan: no changes to regimen at this time (2) Other obsessive-compulsive disorder: Status: Acute Code(s): F42.8 - Other obsessive-compulsive disorder Plan will check if Vyvanse is covered by insurance in meantime, will switch from Wellbutrin XL 150 mg qam to Wellbutrin SR 100 mg qam start lamotrigine 25 mg qd continue guanfacine ER 1-2 mg qd continue Abilify 3.5 mg qhs (pt lowered back to 2 mg due to weight gain concerns, however is less effective, but agrees to return dose to 3.5 mg while waiting for Lamictal to be therapeutic) cotninue fluvoxamine 75 mg BID hold off taking lorazepam 0.5 mg try using 300 mg of gabapentin earlier in evening continue gabapentin 600 mg qhs continue melatonin prn continue diphenhydramine 25-50 mg qhs PRN sleep continue other regular medications?- semaglutide 0.25 mg subcut , weekly Routine lab work reviewed - LFTs wnl (patient no longer taking Tylenol PM) findings for iron deficiency anemia, low folate - Rx supplement for Fe, folate and vit c EKG, routine and UDS as indicated Continue to monitor Patient educated on: diagnosis and medication risk/benefits Informed Consent: understands Reason for contiued partial hosp. stay Substantial Risk for: med/psych decompensation Certification I certify that partial hospital treatment is medically necessary due to the symptoms and problems resulting from the patient's mental illness and the failure to treat the patient at the partial hospital level of care would likely result in the patient requiring inpatient psychiatric care which could not be prevented at a less intensive level of care. Total time managing care of this patient today __40__ minutes. Discharge Plan Discharge Attending provider: Nely Oviedo Additional Instructions: New PCP appointment with Dr Auguste on February 08, 2024 at [address] [place] [address]. Office number [phone]. Medications: New iron bis glycinat-vit C-FA-B12 28 mg iron-60mg -400 mcg-8 mcg capsule 1 cap PO DAILY 30 Days Qty: 30 1RF lisdexamfetamine 10 mg capsule 10 mg PO QAM Qty: 14 0RF Rx Instructions: Partial Fill upon patient request. lamotrigine 100 mg tablet 100 mg PO DAILY Qty: 14 0RF Continued semaglutide (weight loss) 0.25 mg/0.5 mL Pen Injector 0.25 mg SUBCUT QWEEK Rx Instructions: administer weeks 1 through 4 of therapy fluvoxamine 50 mg Tablet 50 mg PO BID 30 Days Qty: 60 0RF bupropion HCl 100 mg tablet sustained-release 12 hr 100 mg PO QAM Qty: 7 0RF aripiprazole 5 mg tablet 5 mg PO BEDTIME Qty: 7 0RF aripiprazole 2 mg tablet 2 mg PO BEDTIME Qty: 7 0RF Changed diphenhydramine HCl 50 mg capsule 50 - 100 mg PO BEDTIME PRN (Reason: sleep) Qty: 14 0RF gabapentin 300 mg capsule 900 - 1,200 mg PO BEDTIME Qty: 28 0RF guanfacine 1 mg tablet extended release 24 hr 1 mg PO QAM Qty: 7 0RF Discontinued hydroxyzine HCl 25 mg Tablet 25 mg PO BID PRN (Reason: Anxiety) bupropion HCl 300 mg tablet extended release 24 hr 300 mg PO DAILY bupropion HCl 150 mg tablet extended release 24 hr 150 mg PO DAILY gabapentin 100 mg capsule 100 mg PO DAILY Stand Alone Forms: Patient Portal Discharge page Patient Education: Depression (DC), Anxiety (GEN) Print Language: Cook Islander
--- NOTE | 2024-01-16 10:03 | PC.NURSE ---
Dr Oviedo is aware of patient u/a results along with Urine Culture results Organism 1 Strep Agalactiae greater than 100,000.
--- NOTE | 2024-01-16 23:48 | HO.PHPPROGNO ---
Subjective Subjective Date of Service: 01/16/24 Reason For Visit: MDD Interim History: Patient anticipates discharge at the end of the day. I am feeling physically calmer and not sedated. AM able to listen to feedback . Says she feels more present. Reports improvements in OCD especially when she takes Abilify at 3.5 mg. Denies any adverse effects. The effect is so apparent that she felt inclined to start pulling back on Luvox. I dont feel like it works nearly as well and the 75 mg in the AM is too sedating. She is now at Luvox 50 mg BID and feels less tired after AM dose. She shares thoughts of continuing to taper, however agrees to hold off further reductions in dose until sees PO provider. Was unable to fill Vyvanse as it requires a PA. Says she notices the Wellbutrin SR is better tolerated than XL. Less anxiety that XL 300 mg but feels more alert and calmer on SR at 100 mg and does not feel it interfers with sleep. Continues on gbapentin at night, usually needing 900 mg for sleep I also notice if I take 300 of it earlier, I notice my thoughts are a little more focused . Will continue with treatment regime. She denies any SI. No hx of VH, AH, HI. Medication Compliance: Yes Side effects from medications: No Attending Groups: Yes Review of Systems Acute medical concerns: No Mental Status Exam Mental Status Exam Narrative: Pleasant. Engaged. Casually dressed. Organized. Some anxiety evident. Mood anxious, less depressed or labile. No SI. No HI. No agitation. No psychosis. Insight and judgment good Diagnostics Vital Signs (24Hr): BMI result Body Mass Index 23.3 Assessment & Plan Assessment & Plan (1) Major depression, recurrent: Status: Acute Code(s): F33.9 - Major depressive disorder, recurrent, unspecified Assessment and Plan: no changes to regimen at this time (2) Other obsessive-compulsive disorder: Status: Acute Code(s): F42.8 - Other obsessive-compulsive disorder Plan [facility]charge from [facility] continue Wellbutrin SR 100 mg qam continue guanfacine ER 1 mg qd continue lamotrigine 25 mg qd (titrate by 25 mg q 2 weeks) continue Abilify 2-3.5 mg qhs continue fluvoxamine 50 mg BID (pt would like to taper further but agrees to hold off and follow up with OP provider to cont to monitor) continue gabapentin 600-900 mg mg qhs continue diphenhydramine 25-50 mg qhs PRN sleep continue melatonin prn continue other regular medications?- semaglutide 0.25 mg subcut , weekly Vyvanse requiring a PA (so will continue with WB and guanfacine for ADHD) Discontinue lorazepam, Routine lab work reviewed - LFTs wnl (patient no longer taking Tylenol PM) findings for iron deficiency anemia, low folate - Rx supplement for Fe, folate and vit c EKG, routine and UDS as indicated Continue to monitor Patient educated on: diagnosis and medication risk/benefits Informed Consent: understands Reason for contiued partial hosp. stay Substantial Risk for: stable for discharge Certification I certify that partial hospital treatment is medically necessary due to the symptoms and problems resulting from the patient's mental illness and the failure to treat the patient at the partial hospital level of care would likely result in the patient requiring inpatient psychiatric care which could not be prevented at a less intensive level of care. Total time managing care of this patient today __30__ minutes. Discharge Plan Discharge Attending provider: Nely Oviedo Additional Instructions: New PCP appointment with Dr Auguste on February 08, 2024 at [address]pm. [address] [place] [address]. Office number [phone]. Medications: New iron bis glycinat-vit C-FA-B12 28 mg iron-60mg -400 mcg-8 mcg capsule 1 cap PO DAILY 30 Days Qty: 30 1RF lisdexamfetamine 10 mg capsule 10 mg PO QAM Qty: 14 0RF Rx Instructions: Partial Fill upon patient request. lamotrigine 100 mg tablet 100 mg PO DAILY Qty: 14 0RF Continued semaglutide (weight loss) 0.25 mg/0.5 mL Pen Injector 0.25 mg SUBCUT QWEEK Rx Instructions: administer weeks 1 through 4 of therapy fluvoxamine 50 mg Tablet 50 mg PO BID 30 Days Qty: 60 0RF bupropion HCl 100 mg tablet sustained-release 12 hr 100 mg PO QAM Qty: 7 0RF aripiprazole 5 mg tablet 5 mg PO BEDTIME Qty: 7 0RF aripiprazole 2 mg tablet 2 mg PO BEDTIME Qty: 7 0RF Changed diphenhydramine HCl 50 mg capsule 50 - 100 mg PO BEDTIME PRN (Reason: sleep) Qty: 14 0RF gabapentin 300 mg capsule 900 - 1,200 mg PO BEDTIME Qty: 28 0RF guanfacine 1 mg tablet extended release 24 hr 1 mg PO QAM Qty: 7 0RF Discontinued hydroxyzine HCl 25 mg Tablet 25 mg PO BID PRN (Reason: Anxiety) bupropion HCl 300 mg tablet extended release 24 hr 300 mg PO DAILY bupropion HCl 150 mg tablet extended release 24 hr 150 mg PO DAILY gabapentin 100 mg capsule 100 mg PO DAILY Stand Alone Forms: Patient Portal Discharge page Patient Education: Depression (DC), Anxiety (GEN) Print Language: Puerto [place]ican
--- NOTE | 2024-01-17 15:22 | HO.PHP ---
Trombone Slide Assembler called Steph at roughly 9:20 am when pt did not arrive for morning group. Pt answered and informed staff she would not be in today due to some things that came up with her father's health and errands she needed to run for him. Pt stated she would call back in 1 hour to discuss discharge since pt was scheduled to discharge today. Pt did not call back. Trombone Slide Assembler called Steph at roughly 2:00pm and left her a voicemail to please call back before 3:30 to do a phone discharge or if possible, pt can come in tomorrow for her last day and to discharge in person tomorrow. Pt has not yet called back. Pt's discharged will be moved to tomorrow, 01/18/24.
--- NOTE | 2024-01-18 09:41 | HO.PHP ---
9:15 AM: PHP staff member reached out to Steph due to her not showing up to program today. PHP staff member left her a VM and is awaiting a call back. 9:30 AM: PHP staff member reached out to Steph one more time before initiating a phone call to her emergency contact, Umer, who is her father. Steph did not answer again. Another voicemail was left and she was informed that her emergency contact will be reached out to and if she is unable to get a hold of the emergency contact a wellness check will have to be preformed. PHP staff member reached out to Umer, Steph's father, who stated that he believes she is at her boyfriends house. Umer noted that he would reach out to her and have her call the program. Steph contacted the program immediately and apologized because she was on a work call. [facility] staff was receptive and explored if she would be able to come in tomorrow to complete her last day within the program. Steph stated that she would be able to come in half day because she has work at 12:30 PM. [facility] staff was in agreement and informed her she could come in for a half day. [facility] staff member assessed safety, in which she reported no safety concerns or concerns around SI, plan or intent.
--- NOTE | 2024-01-19 10:17 | PM.EVENT ---
Event Note Date of Service: 01/19/24 Event Note: Patient called out of program. She was scheduled for discharge. I spoke with her by phone. She reports she is doing okay and that she needed to work, and attend to setting up her work schedule. She requested to speak with this sports book writer about finalizing her medications and to request refills. I think I like my medication changes. I kind of feel calm and not sedated, and able to listen to feedback. She denies any depressive symptoms, OCD sx still there but a little better . She denies any SI, HI, AH, VH. continue titration of Lamictal toward 100 mg/d, currently at 25 mg qd continue Wellbutrin SR 100 mg qam continue Abilify at 2 mg qd continue Luvox at 50 mg BID (per patient preference, no notable improvement at 75 mg BID. Abilify more effective for OCD sx) continue guanfacine ER daily in evening continue gabapentin 600-900 mg qhs prn sleep continue diphenhydramine 50 mg qhs prn insomnia Refills sent to pharmacy will defer further medication management to outpatient provider Time Spent With Patient Time: Total time managing care of this patient today ____ minutes.
--- NOTE | 2024-02-05 10:08 | P.EN_ITS ---
Event Note Date of Service: 02/05/24 Event Note: Patient is need of refills of her medications. Continues on Lamictal, dose currently at 50 mg qd (continues to titrate toward 100 mg/d). She ran out of Wellbutrin SR 100 mg so started taking what was left of her Wellbutrin XL 150 mg and started noticing that her OCD symptoms got worse . She is eager to get back on the SR 100 mg. She has been taking ABilify 3 mg which she says is better than 2 mg, feels more level, less anxious and OCD was better controlled. Denies any adverse effects form her medications. She has been steady on fluvoxamine 50 mg qam and will consider further reduction in dose in upcoming weeks because she has been on it for a while and had felt it's effectiveness has diminished even prior to [facility] admission. Some sleep disruption, which may be related to longer acting WB, will see if this improves with return to SR formulation. IN the meantime, she can also bump up gabapentin from 900-1200 mg qhs for better sleep. Refills sent to pharmacy. continue Wellbutrin SR 100 mg increase Abilify to 3.5 mg qd continue fluvoxamine 50 mg qd continue lamotrigine 50 mg qd continue gabapentin 900-1200 mg qhs continue diphenhydramine 50-100 mg qhs prn Time Spent With Patient Time: Total time managing care of this patient today __20__ minutes.
--- NOTE | 2024-02-29 18:15 | PM.EVENT ---
Event Note Date of Service: 02/28/24 Event Note: Patient called looking for refills on her medications as she has run out of gabapentin 2 days ago (has not been sleeping well since). She is scheduled to meet with her new OP provider next week but is about to run out of her other medications today and tomorrow. I have efaxed over 7 days of her medications: bupropion sr 100 mg qam diphenhydramine 50-100 mg qhs prn insomnia gabapentin 900-1200 qhs prn sleep guanfacine ER 1 mg qam lamotrigine 100 mg qd -Has tapered off fluvoxamine since she has found that ABilify 3.5 mg controls her OCD sx well and does not feel the fluvoxamine was effective (she was admitted to PHP already on Luvox 50 mg bid with mod-sev OCD sx). -PA did not go through on Vyvanse. PLans to follow up with new provider to discuss. Time Spent With Patient Time: Total time managing care of this patient today ____ minutes.
== END 2024-01-16 23:59 | disposition home or self-care (01) ==
LOC: HO.PHPA 12:15
PROVIDERS: Visit Provider Psychiatry & Neurology Psychiatry
DX: F33.9 Major depressive disorder, recurrent, unspecified (principal); F90.9 Attention-deficit hyperactivity disorder, unspecified type; F42.8 Other obsessive-compulsive disorder; F41.3 Other mixed anxiety disorders; F12.10 Cannabis abuse, uncomplicated; Z79.899 Other long term (current) drug therapy
CPT/HCPCS: 90791; 90853